=== PATIENT | female | born 1975 | race Two or more races ===

== ENCOUNTER → 2023-04-12 13:15 | Outpatient (BNVA) | payer OTHER, SELFPAY | PROVIDERS: PCP Internal Medicine; Visit Provider Nurse Practitioner Family | DX: G43.709 Chronic migraine without aura, not intractable, without status migrainosus (principal); H92.01 Otalgia, right ear; G93.0 Cerebral cysts | CPT/HCPCS: 99202 ==

== ENCOUNTER 2023-07-27 10:57 | Outpatient (AMB) | payer OTHER, SELFPAY ==
--- NOTE | 2023-07-27 11:02 | MHC.OFFVIS ---
Intake Vital Signs 07/27/23 11:07 07/27/23 11:08 Height 5 ft 2 in Weight 154 lb 4 oz 154 lb BMI 28.2 BP 140/84 H Blood Pressure Location Rt brachial Position Sitting Pulse 66 Pulse Source Pulse Oximeter Intake Visit Reasons: 3m follow up Chronic Migraines - Confirmed Intake Note: Patient presents for 3 month follow up migraines. Patient states Krystle been much better, I barely get a headaches. Allergies No Known Allergies Allergy (Verified 07/27/23 11:08) HPI HPI Comments History of Present Illness Details 47-yr-old female presents for f/u visit. Pt denies any significant interval medical changes, however she states she has had 2 courses of ABT for her right ear and has been referred to ENT- but an appointment has not been made yet. Brain MRI showed stable right middle cranial fossa arachnoid cyst, which extends into the right sylvian fissue, flattening of the underlying right anterior temporal opercular parenchyma- unchanged. Scattered small T2 bright foci within supratentorial white matter- nonspecific. Pt has had 1-2 headaches since her last visit here. She is compliant w/ Magnesium, but not taking Propranolol. May use Iburpofen prn. She has not needed to take Rizatriptan. [facility] Medical History (Updated 07/27/23 @ 13:00 by AYO Marquez) Hearing loss in right ear Thyroiditis Surgical History (Reviewed 04/12/23 @ 13:33 by Kimberli Smith [facility]) History of section Hx of tubal ligation Family History Father Diabetes Mother High cholesterol Brother Acid reflux Social History Alcohol intake: never Patient Tobacco Use Status: Never used Tobacco Review of Systems Const All systems reviewed & are unremarkable except as noted in HPI and below Physical Exam Vital Signs: Last Vital Signs Pulse 66 07/27/23 11:08 BP 140/84 H 07/27/23 11:08 BMI result Body Mass Index 28.2 Const General: cooperative and no acute distress Orientation/consciousness: patient oriented x3 HEENT Head: Yes normocephalic Resp Effort & Inspection: normal respiratory effort and able to speak in complete sentences Neuro General: patient oriented x3, gait normal and CN's II-XI intact bilaterally Cognition (Neuro): normal cognition Motor exam (neuro): 5/5 motor strength present throughout Psych Appearance: grossly normal Mental Status: mental status grossly normal Speech and movement: Normal speech and movement present Affect: normal affect Attitude: cooperative Thought process: Normal thought process present Thought content: Normal thought content present Insight: Good insight present (Psych) Judgement: Good judgement present (Psych) Assessment & Plan Assessment & Plan (1) Chronic migraine without aura: Code(s): G43.709 - Chronic migraine without aura, not intractable, without status migrainosus (2) Arachnoid cyst: Comment: Right middle cranial fossa Code(s): G93.0 - Cerebral cysts Plan For right ear pain- pt advised to f/u w/ ENT and/or PCP to check on referral status. Reviewed brain MRI w/wo- stable right middle cranial fossa arachnoid cyst, very mild non-specific supratentorial white matter changes. Will continue to monitor. For overall headache management: Track headaches. For acute headache treatment: Ibuprofen prn. Rizatriptan 10mg tab, /4 - 1 tab (2.5-10mg) at onset of headache, may repeat in 2 hours. Max of 2 tabs (200mg) per 24 hours. May adjunct with OTC Ibuprofen (liquigel) 800mg q 6 hours.. Previous acute migraine medication trials: Sumatriptan- ineffective, not tolerated. Acute migraine medication contraindications: None at this time Information also given on non-pharmacological interventions, such as migraine cooling caps. For headache prevention medication: Discussed that preventative medications should be taken routinely as prescribed for best effect, it may take several weeks for full effect to take effect. Pt stopped Propranolol ER 60mg qhs. Continue Magnesium 400mg qhs. Previous migraine prevention medication trials: Topiramate- ineffective. Amitriptyline- not tolerated. Migraine prevention medication contraindications: None at this time. Pt to follow-up in 6 months or sooner prn. Coding Level of Care Code Est Pt Level 4 (62350) Diagnoses Chronic migraine without aura G43.709 Arachnoid cyst G93.0
[2023-07-27 11:08] VITALS: BP 140/84; PULSE 66; BMI 28.2
== END 2023-07-27 12:00 | disposition home or self-care (01) ==
PROVIDERS: PCP Internal Medicine; Visit Provider Nurse Practitioner Family
DX: G43.709 Chronic migraine without aura, not intractable, without status migrainosus (principal); G93.0 Cerebral cysts
CPT/HCPCS: 99214

== ENCOUNTER → 2023-07-27 10:57 | Outpatient (BNVA) | payer OTHER, SELFPAY | PROVIDERS: PCP Internal Medicine; Visit Provider Nurse Practitioner Family | DX: G43.709 Chronic migraine without aura, not intractable, without status migrainosus (principal); G93.0 Cerebral cysts; Z79.899 Other long term (current) drug therapy | CPT/HCPCS: 99212 ==

== ENCOUNTER 2024-06-06 13:20 | Outpatient (AMB) | payer OTHER, SELFPAY ==
--- NOTE | 2024-06-06 13:42 | A.OFFVIS_ITS ---
Vital Signs 06/06/24 13:44 Height 5 ft 2 in Weight 149 lb BMI 27.2 BP 110/72 Blood Pressure Location Rt brachial Position Sitting Pulse 56 Pulse Source Pulse Oximeter Intake Visit Reasons: 6m follow up Chronic Migraines-Unable to LVM Intake Note: Patient presents for 6 month follow up. Patient states she hasn't had a migraines in a while now and when she does she takes ibuprofen which is rarely. Allergies No Known Allergies Allergy (Verified 06/06/24 13:44) Medication List - Last Reconciled 06/06/24 by AYO Marquez ibuprofen 800 mg PO TID loratadine 10 mg PO DAILY 30 days magnesium oxide 400 mg PO DAILY propranolol ER 60 mg PO BEDTIME 30 days rizatriptan 5 - 10 mg (0.5 - 1 x 10 mg) PO Q2H PRN 21 days HPI Comments Details: 48-yr-old female presents for f/u visit for f/u of migarine and ear pain. Pt is accompanied by her dtr. Pt denies any significant interval medical changes. Pt states she really has not had any recent headaches. Headcahe can be triggered by flying or by being at higher elevations though she does not do these activities often. She may have right ear discomfort especially w/ headache, but also without headache. She can have a high pitched or a sound of air moving in the right ear. She did see ENT- was told that she has mild hearing loss. [facility] Medical History (Updated 07/27/23 @ 13:00 by AYO Marquez) Hearing loss in right ear Thyroiditis Surgical History History of section Hx of tubal ligation Family History Father Diabetes Mother High cholesterol Brother Acid reflux Social History Alcohol intake: never Patient Tobacco Use Status: Never used Tobacco Physical Exam Vital Signs: Last Vital Signs Pulse 56 06/06/24 13:44 BP 110/72 06/06/24 13:44 BMI result Body Mass Index 27.2 Const General: cooperative and no acute distress Orientation/consciousness: patient oriented x3 Resp Effort & Inspection: normal respiratory effort and able to speak in complete sentences Neuro General: patient oriented x3 Cranial nerves: Yes CN's II-XII intact bilaterally Cognition (Neuro): normal cognition Psych Appearance: grossly normal Mental Status: mental status grossly normal Speech and movement: Normal speech and movement present Affect: normal affect Attitude: cooperative Assessment & Plan Assessment & Plan (1) Chronic migraine without aura: Code(s): G43.709 - Chronic migraine without aura, not intractable, without status migrainosus Category: Medical (2) Right ear pain: Code(s): H92.01 - Otalgia, right ear Category: Medical (3) Arachnoid cyst: Comment: Right middle cranial fossa Code(s): G93.0 - Cerebral cysts Category: Medical Plan For right ear pain- f/u w/ ENT as planned. Reviewed brain MRI w/wo- stable right middle cranial fossa arachnoid cyst, very mild non-specific supratentorial white matter changes. Will continue to monitor. ? For overall headache management: Track headaches. ? For acute headache treatment: Ibuprofen prn. Rizatriptan 10mg tab, /4 - 1 tab (2.5-10mg) at onset of headache, may repeat in 2 hours. Max of 2 tabs (200mg) per 24 hours. May adjunct with OTC Ibuprofen (liquigel) 800mg q 6 hours.. Previous acute migraine medication trials: Sumatriptan- ineffective, not tolerated. Acute migraine medication contraindications: None at this time Information also given on non-pharmacological interventions, such as migraine cooling caps. ? For headache prevention medication: Discussed that preventative medications should be taken routinely as prescribed for best effect, it may take several weeks for full effect to take effect. Pt stopped Propranolol ER 60mg qhs. Continue Magnesium 400mg qhs. Previous migraine prevention medication trials: Topiramate- ineffective. Amitriptyline- not tolerated. Migraine prevention medication contraindications: None at this time. Future considerations- trial of Acetazolamide prn air travel or travel to higher elevations. ? Pt to follow-up in 6-12 months or sooner prn. Medications: Refilled rizatriptan max 2 tabs per day or 4 tabs per week 5 - 10 mg (0.5 - 1 x 10 mg) PO Q2H PRN 12 tabs 3RF migraine headache 21 days Coding Level of Care Code Est Pt Level 4 (30513) Diagnoses Chronic migraine without aura G43.709 Right ear pain H92.01 Arachnoid cyst G93.0
[2024-06-06 13:44] VITALS: BP 110/72; PULSE 56; BMI 27.2
== END 2024-06-06 14:22 | disposition home or self-care (01) ==
PROVIDERS: PCP Internal Medicine; Visit Provider Nurse Practitioner Family
DX: G43.709 Chronic migraine without aura, not intractable, without status migrainosus (principal); H92.01 Otalgia, right ear; G93.0 Cerebral cysts
CPT/HCPCS: 99214

== ENCOUNTER → 2024-06-06 13:20 | Outpatient (BNVA) | payer OTHER, SELFPAY | PROVIDERS: PCP Internal Medicine; Visit Provider Nurse Practitioner Family | DX: G43.709 Chronic migraine without aura, not intractable, without status migrainosus (principal); G93.0 Cerebral cysts; H92.01 Otalgia, right ear | CPT/HCPCS: 99212 ==

== ENCOUNTER 2025-05-12 15:23 | Outpatient (AMB) | payer OTHER, SELFPAY ==
--- NOTE | 2025-05-12 15:26 | A.OFFVIS_ITS ---
Vital Signs 05/12/25 15:27 Height 5 ft 2 in Weight 150 lb BMI 27.4 BP 110/62 Blood Pressure Location Lt brachial Position Sitting Pulse 61 Pulse Source Pulse Oximeter Pulse Oximetry (%) 97 Oxygen Delivery Method Room Air Intake Visit Reasons: 1 yr follow up Intake Note: Patient presents 1 year follow up for migraines. 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 Pt is accompanied by her dtr. Pt denies any significant interval medical changes, other than being treated for an interval pylori infection. Premature reports have 3 times she has had a short bilateral cerebral headache, triggered by falling asleep on her couch. The headache as comfortable pressure, so she would some light sensitivity. Different than her usual right eye/frontal an air headache. Pt states she occasionally has her typical right-sided migraine. Headache triggers include: flying or by being at higher elevations though she does not do these activities often. She does continue to take magnesium, though notes she put it on hold while being treated for H pylori. She is no longer using rizatriptan, does not tolerated well. She prefers to use ibuprofen. She may have right ear discomfort especially w/ headache, but also without headache. She can have a high pitched or a sound of air moving in the right ear. She did see ENT- was told that she has mild hearing loss, she is being followed closely by ENT still Headache questionnaire: Age/time of onset? 20+ yrs ago Preceding causes? None Headache characteristics? A strong throbbing in her right ear, eye, and the bone around the eye Pain intensity? 10/10 Prodrome symptoms? none Aura? Sees colorful stars- more in the right eye- comes and goes- can last over days. Associated symptoms? photophobia, phonophobia, osmophobia, allodynia, right- sided neck pain, nausea, occasionally vomiting, brain fog, tired, generalized weakness Focal weakness, Parethesias, Autonomic s/s? eye redness, pins and needles in the right side of head. Postdrome? None PFSH Medical History (Updated 05/12/25 @ 16:14 by AYO Marquez) Hearing loss in right ear Thyroiditis Surgical History History of section Hx of tubal ligation Family History Father Diabetes Mother High cholesterol Brother Acid reflux Social History Alcohol intake: never Patient Tobacco Use Status: Never used Tobacco Physical Exam Vital Signs: Last Vital Signs Pulse 61 05/12/25 15:27 BP 110/62 05/12/25 15:27 Pulse Ox 97 05/12/25 15:27 Oxygen Delivery Method Room Air 05/12/25 15:27 BMI result Body Mass Index 27.4 Const General: cooperative and no acute distress Orientation/consciousness: patient oriented x3 Resp Effort & Inspection: normal respiratory effort and able to speak in complete sentences Neuro Other: No palpable scalp tenderness. Mild bilateral posterior cervical tightness. Ears: Right TM, mild effusion, left TM clear General: patient oriented x3 Cranial nerves: Yes CN's II-XII intact bilaterally Cognition (Neuro): normal cognition Psych Appearance: grossly normal Mental Status: mental status grossly normal Speech and movement: Normal speech and movement present Affect: normal affect Attitude: cooperative Assessment & Plan Assessment & Plan (1) Chronic migraine without aura: Code(s): G43.709 - Chronic migraine without aura, not intractable, without status migrainosus Category: Medical Qualifiers: Status migrainosus presence: without status migrainosus Intractability: not intractable Qualified Code(s): G43.709 - Chronic migraine without aura, not intractable, without status migrainosus (2) Right ear pain: Code(s): H92.01 - Otalgia, right ear Category: Medical (3) Arachnoid cyst: Comment: Right middle cranial fossa Code(s): G93.0 - Cerebral cysts Category: Medical Plan For arachnoid cyst: Previous brain MRI w/wo- stable right middle cranial fossa arachnoid cyst, very mild non-specific supratentorial white matter changes. Will continue to monitor. ? For overall headache management: Track headaches. Advised to use a supportive pillow when sleeping. For right ear pain and hearing loss: Cipro/dexamethasone drops 4 drops to right ear b.i.d. x7 days Follow-up with ENT as scheduled ? For acute headache treatment: Ibuprofen prn. Previous acute migraine medication trials: Sumatriptan- ineffective, not tolerated. Rizatriptan-not tolerated. Acute migraine medication contraindications: None at this time Information previously given on non-pharmacological interventions, such as migraine cooling caps. Future considerations: trial of Acetazolamide prn air travel or travel to higher elevations. ? For headache prevention medication: Patient declines trial of new preventative medication at this time. Continue Magnesium 400mg qhs. Previous migraine prevention medication trials: Topiramate- ineffective. Amitriptyline- not tolerated. Propranolol ER 60 mg-not tolerated. Migraine prevention medication contraindications: None at this time. ? Pt to follow-up in 12 months or sooner prn. Medications: New ciprofloxacin-dexamethasone 0.3-0.1 % 4 drps otic (ear) right Q12H 7.5 mL 0RF 7 days H92.01 - Otalgia, right ear Changed From magnesium oxide 400 mg PO DAILY To magnesium oxide 400 mg PO DAILY 90 caps 3RF 90 days Coding Level of Care Code Est Pt Level 4 (89013) Diagnoses Chronic migraine without aura without status migrainosus, not intractable G43.709 Status migrainosus presence: without status migrainosus Intractability: not intractable Right ear pain H92.01 Arachnoid cyst G93.0
[2025-05-12 15:27] VITALS: BP 110/62; PULSE 61; O2SAT 97; BMI 27.4
--- OUTSIDE RECORDS SUMMARY | 2025-05-12 16:10 | XMS_ITS | Clinical Summary ---
Author Organization [facility] Address [address] [place] [address] Care Team Providers Care Hand Buffing Wheel Former Name Role Phone Unavailable Primary Care Provider Unavailabl e Source Comments PLEASE NOTE, if this patient is a minor, it may be UNLAWFUL to discuss sensitive information that is contained in these records (such as FAMILY PLANNING, MENTAL HEALTH or SUBSTANCE ABUSE) with the minor patient's parent or other person without the patient's specific authorization.[facility] Allergies No known active allergies Medications aspirin-acetamin ophen-caffeine (EXCEDRIN MIGRAINE) 250-250-65 mg per tabletIndication s:Intractable chronic migraine without aura and without status migrainosus Take 1-2 tabs as needed daily , max 3times a week 24 Tab 1 05/01/2016 Active topiramate (TOPAMAX) 25 mg tabletIndication s:Intractable chronic migraine without aura and without status migrainosus Take 1 Tab by mouth nightly at bedtime. 30 Tab 2 06/20/2016 Active naproxen (NAPROSYN) 500 mg tabletIndication s:Intractable chronic migraine without aura and without status migrainosus Take 1 Tab by mouth 2 (two) times daily with a meal. 30 Tab 1 06/20/2016 Active Active Problems Problem Noted Date Diagnosed Date Pap smear for cervical cancer screening 05/05/20 16 Overview (05/17/2016): Gc,chlamydia- negative. H/O tubal ligation 09/09/2015 Environmental allergies 03/17/2015 Trigger point with neck pain 12/19/2014 Migraine 11/06/2014 Resolved Problems Problem Noted Date Diagnosed Date Resolved Date Hypertriglyceridemia 11/10/2014 015 Nausea 11/06/2014 12/17/2014 Sinusitis 11/06/2014 12/17/2014 Immunizations Immunization Administration Dates Next Due Hep B, Adult/Adol (ENERGIX/RECOMBIVAX) 6,10/11/2015,09/09/2015 Family History Medical History Relation Name Comments Diabetes Father Relation Name Status Comments Father Alive Social History Tobacco Use Types Packs/Day Years Used Date Smoking Tobacco: Never Smokeless Tobacco: Never Tobacco Cessation:Counseling Given: No Alcohol Use Standard Drinks/Week Comments No 0 (1 standard drink = 0.6 oz pur e alcohol) Social Connections Answer Date Recorded Social Connections and Isolation 0 07/05/2019 Financial Resource Strain Answer Date R ecorded Financial Resource Strain 0 2018 Stress Answer Date Recorded Stress 0 07/05/2019 Physical Activity Answer Date Recorded Physical Activity 0 07/05/2019 Food Insecurity Answer Date Recorded Food 0 07/05/2019 Transportation Needs Answer Date Record ed Transportation 0 07/05/2019 Housing Stability Answer Date Recorded Housing 0 07/05/2019 Safety and Environment Answer Date Gavino rded Safety 0 07/05/2019 Utilities Answer Date Recorded Utilities 0 07/05/2019 Employment Answer Date Recorded Employment 0 07/05/2019 Comments No Sex and Gender Information Value Date Recorded Sex Assigned at Not on file Legal Sex Female 11:36 AM PDT Gender Identity Not on file Sexual Orientation Not on file Occupation Industry Job Start Date Job End Date unemployed Not on file Not on file Not on file Last Filed Vital Signs Vital Sign Reading Time Taken Comments Blood Pressure 102/70 06/20/2016 3:21 PM EDT Pulse 68 06/20/2016 3:21 PM EDT Temperature 37.3 C (99.2 F) 06/20/2016 3:21 PM EDT Respiratory Rate 16 06/20/2016 3:21 PM EDT Oxygen Saturation 98% 02/18/2015 9:27 AM EDT Inhaled Oxygen Concentration - - Weight 61.7 kg (136 lb) 06/20/2016 3:21 PM EDT Height 157.5 cm (5' 2 ) 06/20/2016 3:21 PM EDT Body Mass Index 24.87 06/20/2016 3:21 PM EDT Plan of Treatment Not on file Insurance [place] [employer] [facility]
--- OUTSIDE RECORDS SUMMARY | 2025-05-12 16:10 | XMS_ITS | Data Portability ---
Author Organization [place] [facility], Allergy Address [address] [place] [phone] Care Team Providers Care Buggy Man Name Role Phone [facility] Primary Care Provider Assessment Encounter Date Assessment Date Assessment LastModified by Organization Details LastModified Time 10/14/2024 10/14/2024 Right side hearing has been stable, perhaps slight decrease. I do not believe she is a candidate for right-sided amplification yet. Her asymmetry is likely from infection from childhood as it has been stable for many years. Hearing protection was encouraged when she is at work [email or web address] Not available 10/14/2024 10:10:38 Plan of Treatment Reminders Order Date Submit Date Provider Last Modified By Organization Details Last Modified Time Details Appointments Hearing Test 2024 10:00A M Hearing Test Not available Not available Not available Establish ed 15 2024 10:30A M IRIS MAHMOOD MD Not available Not available Not available Lab None recorded. Referral None recorded. Procedures None recorded. Surgeries None recorded. Imaging None recorded. Medication Orders None recorded. Patient TargetsNo targets recorded. Patient InstructionsNo instructions recorded. Reason for Referral None Reported. Results Created Date Observation Date Name Description Value Unit Range Abnormal Flag Note LastModifiedBy Organization Detail LastModifiedTime 10/14/20 24 audio gram No observ ation record ed. BARCODE Not Available 2023 13:49:02 Result Notes None recorded. Problems Name Problem SNOMED Code Status Onset Date Resolution Date Notes Provider Name and Address Organization Details Recorded Time Sensorine ural hearing loss 30742236 Active 2022 Sensorine ural hearing loss, unilatera l, right ear, with unrestric savannah hearing on the contralat eral side; Note: Date Diagnosed : 10/12/2023 11:04 AM (H90.41) Not Available [facility] 4 03:26:56 Pain of right temporoma ndibular joint [id number] 745855 Active 2022 Arthralgi a of right temporoma ndibular joint; Note: Date Diagnosed : 10/12/2023 11:56 AM (M26.621) Not Available [facility] 4 03:26:56 Sensorine ural hearing loss in right ear [id number] 100 Active 2023 VIKI SARAVIA, [address],[place] [address], [place], [phone] , [facility] 09:53:54 Problem Notes None recorded. Procedures Surgical History Date Name Laterality Status Provider Name and Address Organization Details Recorded Time 10/14/2024 Air & Speech Audio with Tymps - 04156, 46354 & 52680 completed VIKI SARAVIA, [facility] [address],[place] [address], [place], [address], [facility] 10/14/2024 09:53:46 Imaging Results None recorded. Procedure Notes None recorded. Medical Equipment None Reported. Medications Name Sig Start Date Stop Date Status Note LastModified by Organization Details LastModified Time cetirizine 10 mg tablet active Medicatio n ID: [id number] Br and Name: cetirizin e Send Method: E-Prescri bed Subs Allowed: subs OK Medica tionGener icName: cetirizin e Not Available Not Available Not Available ibuprofen 800 mg tablet active Medicatio n ID: [id number] Br and Name: ibuprofen Send Method: E-Prescri bed Subs Allowed: subs OK Medica tionGener icName: ibuprofen Not Available Not Available Not Available rizatripta n 10 mg tablet active Not Available Not Available Not Available peg-electr olyte solution 420 gram oral solution MIX AND DRINK DIRECTED 240ML EVERY 10 MINUTES UNTIL ALL 4000ML CONSUMED OR RECTAL EFFUENT IS CLEAR active Not Available Not Available No t Available famotidine 20 mg tablet TAKE 1 TABLET BY MOUTH TWICE DAILY active Not Available Not Available No t Available docusate sodium 100 mg capsule TAKE ONE CAPSULE BY MOUTH TWICE DAILY NEEDED FOR CONSTIPAT ION active Not Available Not Available No t Available omeprazole 20 mg capsule,de layed release TAKE 1 CAPSULE BY MOUTH DAILY active Not Available Not Available No t Available polyethyle ne glycol 3350 17 gram/dose oral powder MIX ONE CAPFUL IN 8 OUNCES OF WATER AND DRINK ONCE A DAY active Not Available Not Available No t Available fluticason e propionate 50 mcg/actuat ion nasal spray,susp ension active Medicatio n ID: [id number] Br and Name: fluticaso ne propionat e Send Method: E-Prescri bed Subs Allowed: subs OK Medica tionGener icName: fluticaso ne propionat e Not Available Not Available Not Available diclofenac 1 % topical gel APPLY TOPICALLY FOUR TIMES DAILY. NOT TO EXCEED 32 GRAMS/DAY active Not Available Not Available No t Available Vitals None Recorded Social History None recorded. Functional Status None recorded. Mental Status None recorded. Family History Nothing Reported. Medical History No medical history recorded. Gynecological HistoryNo gynecological history recorded. Obstetrics History GPAL:G 0 P 0 0 0 0 Past Encounters Encounter ID Performer Location Encounter Start Date Encounter Closed Date Diagnosis/Indication Diagnosis SNOMED-CT Code Diagnosis ICD10 Code Diagnosis Note [id number] IRIS MAHMOOD MD [facility] [address] [phone] 10/14/2024 09:32:09 10/14/2024 10:10:52 Sensorineural hearing loss in right ear [id number] H90.41 Right Ear:Mild LF SNHL rising to normal at 2K Hz sloping to a moderately -severe HF SNHL at 8K Hz with excellent speech discrimina tion.Type A tympanogra m.Left Ear:Normal hearing with excellent speech discrimina tion.Type A tympanogra m. Health Concerns Section Related Observation LastModified by Organization Detai ls LastModified Time None Recorded Concern Status LastModified by Organization Details LastModified Time None Recorded Advance Directives Directive None Recorded Payers Insurance Date Sequence Insurance Name Policy Number Policy Vaughn Covered Member ID Vaughn Member ID Guarantor Name 10/14/[address] [place] [address] Mary Gr [id number] Mary Gr Notes Date Note Type Note Provider Name and Address Organization Details Recorded Time 10/14/2024 text/html ipad - spanishright ear feels pressure when yawns or when AC at work is turned ononset 2021initially had some otalgia and was dx with an infection, treated with abx x 2she recounted a story of a bug in her ear as a child and the treatment in [facility] was to put her own urine in her ear - the bug did not leaveno prior surgery on earstinnitus on right may last a few hoursno vertigo no dental problems+noise exposure at work since 2014 PV 10/12/2023 Nancy - audio Right mild to normal to mod severe SNHL, Left normal. +tinnitus IRIS MAHMOOD MD [address] [place] [address], [place], [phone], [place] [facility] 10/14/2024 10:11:30 OBGyn Episode No OBEpisode recorded.
== END 2025-05-12 16:07 | disposition home or self-care (01) ==
LOC: HO.HSMS 15:24
PROVIDERS: PCP Internal Medicine; Visit Provider Nurse Practitioner Family
DX: G43.709 Chronic migraine without aura, not intractable, without status migrainosus (principal); H92.01 Otalgia, right ear; G93.0 Cerebral cysts
CPT/HCPCS: 99214

== ENCOUNTER → 2025-05-12 15:23 | Outpatient (BNVA) | payer OTHER, SELFPAY | PROVIDERS: PCP Internal Medicine; Visit Provider Nurse Practitioner Family | DX: G43.709 Chronic migraine without aura, not intractable, without status migrainosus (principal); H92.01 Otalgia, right ear; G93.0 Cerebral cysts | CPT/HCPCS: 99212 ==